=== PATIENT | male | born 1935 | race Caucasian/White ===

== ENCOUNTER 2018-01-18 12:20 | Emergency (ER) | payer OTHER ==
[2018-01-18 12:40] LABS: BASOPHIL (%) 0.8 % (0-1); BASOPHIL COUNT 0.1 K/uL (0-0.1); EOSINOPHIL (%) 2.5 % (0-5); EOSINOPHIL COUNT 0.2 K/uL (0-0.3); HEMATOCRIT 32.4 % (38.0-50.0); HEMOGLOBIN 11.4 G/DL (12.5-16.6); IMMATURE GRANULOCYTE (%) 0.7 % (0.0-0.7); LYMPHOCYTE (%) 14.4 % (15-42); LYMPHOCYTE COUNT 1.3 K/uL (1.0-2.8); MCH 32.9 PG (29.0-34.0); MCHC 35.2 G/DL (30.0-36.0); MCV 93.6 FL (86-99); MONOCYTE (%) 9.1 % (3-12); MONOCYTE COUNT 0.8 K/uL (0-0.8); NEUTROPHIL (%) 72.5 % (45-76); NEUTROPHIL COUNT 6.6 K/uL (1.8-6.4); PLATELET COUNT 260 K/uL (156-360); RBC DIS.WIDTH-CV 12.5 % (11.8-14.6); RBC DIS.WIDTH-SD 42.9 % (39-53); RED BLOOD COUNT 3.46 M/uL (4.00-5.50)
[2018-01-18 12:53] LABS: AMYLASE 88 IU/L (1-118); CHLORIDE 104 mEq/L (99-109); POTASSIUM 4.5 mEq/L (3.7-5.4); SODIUM 140 mEq/L (136-147)
[2018-01-18 12:55] LABS: GLUCOSE 142 mg/dL (70-99)
[2018-01-18 12:58] LABS: SERUM ETHYL ALCOHOL < 10 mg/dL
[2018-01-18 12:59] LABS: CREATININE 1.3 mg/dL (0.6-1.3); GFR ESTIMATE (CALCULATED) 56 mL/min/ (58.99-99999)
[2018-01-18 13:00] LABS: UREA NITROGEN (BUN) 17 mg/dL (9-23)
[2018-01-18 13:02] LABS: LIPASE 49 U/L (1.0-51.0)
== END 2018-01-18 15:32 | disposition home or self-care (01) ==
LOC: TRA 12:20
PROVIDERS: Emergency Medicine
DX: S01.111A Laceration without foreign body of right eyelid and periocular area, initial encounter (principal); S61.411A Laceration without foreign body of right hand, initial encounter; H57.8 Other specified disorders of eye and adnexa; W01.198A Fall on same level from slipping, tripping and stumbling with subsequent striking against other object, initial encounter; Y93.89 Activity, other specified; Y92.008 Other place in unspecified non-institutional (private) residence as the place of occurrence of the external cause; Z23 Encounter for immunization; I10 Essential (primary) hypertension; E11.9 Type 2 diabetes mellitus without complications; I25.10 Atherosclerotic heart disease of native coronary artery without angina pectoris; Z86.73 Personal history of transient ischemic attack (TIA), and cerebral infarction without residual deficits; Z79.01 Long term (current) use of anticoagulants
CPT/HCPCS: 70450; 73130; 80048; 81003; 82150; 83690; 85025; 86850; 86900; 86901; 99281; 99285; G0480